=== PATIENT | female | born 1970 | race Caucasian/White ===

== ENCOUNTER → 2016-11-13 | Outpatient (CLI) | payer MEDICAID ==
[~2016-11-13] MED LIST: MEDROL 4MG. DOSE4 MG PO; NOMEDS XX
[2016-11-16 10:32] LABS: PTT-LA 32.8; dRVVT 40.6
== END ==
LOC: LAB 15:09
PROVIDERS: Physician Assistant
DX: R76.8 Other specified abnormal immunological findings in serum (principal)